=== PATIENT | female | born 1965 | race American Indian/Alaskan Native ===

== ENCOUNTER 2016-07-08 13:06 | Outpatient (CLI) | payer OTHER ==
--- NOTE | 2016-07-08 14:04 | Ultrasound Report ---
Transabdominal and transvaginal pelvic ultrasound. History: Foreign body. Findings: The uterus is normal in size and configuration with no focal abnormalities. The endometrial echo is slightly thickened at 1.5 cm. The right ovary is normal. There is a 2.1 cm in diameter complex area in the left ovary which is otherwise normal. There is minimal free fluid in the cul-de-sac. Impression: No significant findings. Probable complex cyst in the left ovary.
== END 2016-07-08 13:07 | disposition home or self-care (01) ==
LOC: US 13:06
PROVIDERS: ATTEND Obstetrics & Gynecology
DX: T19.2XXA Foreign body in vulva and vagina, initial encounter (principal); X58.XXXA Exposure to other specified factors, initial encounter; Y93.89 Activity, other specified; Y92.89 Other specified places as the place of occurrence of the external cause; Y99.8 Other external cause status
CPT/HCPCS: 76830; 76856

== ENCOUNTER 2017-01-24 11:11 | Outpatient (CLI) | payer OTHER ==
--- NOTE | 2017-01-24 14:42 | Mammography Report ---
BILATERAL MAMMOGRAM with CAD: HISTORY: Cancer screening. Comparison study is dated August 08, 2015. FINDINGS: The breast tissue is heterogeneously dense, which could obscure detection of small masses (approximately 50%-75% glandular). No mass, distortion, suspicious calcification, or skin change is seen. IMPRESSION: Negative mammogram. There is no mammographic evidence of malignancy. RECOMMENDATION: Follow-up per ACS guidelines. BI-RADS CATEGORY: 1 = Negative ACR BI-RADS MAMMOGRAPHIC CODES: 0 = Needs additional imaging evaluation; 1 = Negative; 2 = Benign; 3 = Probably benign; 4 = Suspicious; 5 = Malignant; 6 = Known biopsy-proven malignancy COMMENT: 1. Dense breast tissue, i.e., adenosis, fibrocystic changes, etc., may obscure an underlying neoplasm. 2. Approximately 10% of cancers are not detected with mammography. 3. A negative mammography report should not delay biopsy if a clinically suspicious mass is present. COMMENT: Patient follow-up letters are generated in [employer].
== END 2017-01-24 11:12 | disposition home or self-care (01) ==
LOC: MAMMO 11:11
PROVIDERS: ATTEND Obstetrics & Gynecology
DX: Z12.31 Encounter for screening mammogram for malignant neoplasm of breast (principal)
CPT/HCPCS: 77067; G0202